=== PATIENT | female | born 1935 | race Caucasian/White ===

== ENCOUNTER 2017-10-31 15:12 | Emergency (ER) | payer OTHER ==
[~2017-10-31] VITALS: Ht 162.6 cm; Wt 68.0 kg
[2017-10-31] MEDS ORDERED: SYNTHROID50 MCG PO (15:43)
[2017-10-31] MEDS ORDERED: ARICEPT 5 MG TAB5 MG PO (15:44)
[2017-10-31] MEDS ORDERED: ASPIR 8181 MG PO (15:44)
[2017-10-31] MEDS ORDERED: ALPRAZOLAM 0.0.25 MG PO (15:44)
[2017-10-31] MEDS ORDERED: MOBIC7.5 MG PO (16:03)
[2017-10-31 17:12] VITALS: BP 168/86
== END 2017-10-31 17:14 | disposition home or self-care (01) ==
LOC: ER 15:12
DX: S16.1XXA Strain of muscle, fascia and tendon at neck level, initial encounter (principal); S40.012A Contusion of left shoulder, initial encounter; R07.81 Pleurodynia; Z88.0 Allergy status to penicillin; Z87.891 Personal history of nicotine dependence; V89.2XXA Person injured in unspecified motor-vehicle accident, traffic, initial encounter; Y93.89 Activity, other specified; Y92.89 Other specified places as the place of occurrence of the external cause; Y99.8 Other external cause status

== ENCOUNTER 2018-12-18 10:37 | Emergency (ER) | payer OTHER ==
[~2018-12-18] VITALS: Ht 144.8 cm; Wt 40.8 kg
[~2018-12-18 10:37] MED LIST: ALPRAZOLAM 0.0.25 MG PO; ARICEPT 5 MG TAB5 MG PO; ASPIR 8181 MG PO; MOBIC7.5 MG PO; SYNTHROID50 MCG PO
[2018-12-18] MEDS ORDERED: LIPITOR10 MG PO (10:56)
[2018-12-18 11:56] LABS: URINE BILIRUBIN NEGATIVE (Negative); URINE BLOOD NEGATIVE (Negative); URINE CLARITY CLEAR; URINE COLOR YELLOW; URINE GLUCOSE-RANDOM* NEGATIVE (Negative); URINE KETONES NEGATIVE (Negative); URINE LEUKOCYTES-REFLEX TRACE (Negative); URINE NITRITE-REFLEX NEGATIVE (Negative); URINE PROTEIN (DIPSTICK) NEGATIVE (Negative); URINE UROBILINOGEN 0.2 E.U./dl (0.2-1.0)
[2018-12-18 12:07] VITALS: BP 166/85
[2018-12-18] MEDS ORDERED: MIRALAX17 GM PO (12:09)
== END 2018-12-18 12:31 | disposition home or self-care (01) ==
LOC: ER 10:37
PROVIDERS: Emergency Medicine
DX: R10.31 Right lower quadrant pain (principal); Z87.891 Personal history of nicotine dependence; Z88.0 Allergy status to penicillin

== ENCOUNTER 2019-04-29 18:55 | Inpatient (IN) | payer OTHER ==
[~2019-04-29] VITALS: Ht 157.5 cm; Wt 43.1 kg
[~2019-04-29 18:55] MED LIST changes: +LIPITOR10 MG PO; +MIRALAX17 GM PO
[2019-04-29 19:06] VITALS: BP 118/94
[2019-04-29 19:15] LABS: ABSOLUTE NEUTROPHILS 9.5 thou/uL (1.4-8.2); BASOPHILS 0.3 % (0.0-2.0); EOSINOPHILS 0.2 % (0.0-3.0); HEMATOCRIT 39.4 % (37.0-47.0); HEMOGLOBIN 13.2 gm/dL (12.0-15.0); LYMPHOCYTES 6.8 % (24.0-44.0); MCH 33.1 pg (26.0-34.0); MCHC 33.6 g/dL (28.0-37.0); MCV 98.5 fL (80.0-100.0); MONOCYTES 7.2 % (1.0-8.0); PLATELET COUNT 151 thou/uL (150-400); POLYS 85.5 % (36.0-66.0); RDW 13.1 % (10.5-14.5); WBC 11.1 thou/uL (4.0-11.0)
[2019-04-29] MEDS ORDERED: ROBITUSSIN100 MG/53 PO (19:22)
[2019-04-29 19:23] LABS: ANION GAP 8 mmol/L (7-16); BUN 19 mg/dL (7-18); CALCIUM 8.8 mg/dL (8.5-10.1); CHLORIDE 106 mmol/L (98-107); CO2 27 mmol/L (21-32); CREATININE 0.9 mg/dL (0.6-1.0); GLUCOSE 108 mg/dL (74-106); SODIUM 141 mmol/L (136-145)
[2019-04-29] MEDS ORDERED: [UNRECOGNIZED DRUG - OTHER] INH (19:24)
[2019-04-29 19:33] LABS: ALBUMIN 2.9 g/dL (3.4-5.0); MAGNESIUM 1.7 mg/dL (1.8-2.4); SGOT 19 U/L (15-37); SGPT 21 U/L (30-65); TOTAL BILIRUBIN 1.1 mg/dL (<0.1-1.0); TOTAL PROTEIN 6.8 g/dL (6.4-8.2); TROPONIN-I <0.06 ng/mL (<0.06)
--- NOTE | 2019-04-29 21:24 | NUR ---
CALLED [facility] TO CHECK OPN CAPABILTY BETWEEN ZITHROMYCIN AND MAGNIESUM SULFATE AND WAS TOLD IT WAS COMPATABLE
[2019-04-29 21:41] LABS: APTT 25.4 Seconds (24.5-32.8); PROTIME 10.4 Seconds (9.3-11.4)
--- NOTE | 2019-04-29 22:46 | NUR ---
DISCONTIUED IV IN PT'S LEFT FOREARM DUE TO REDNESS IN THE VEIN FROM ZITHROMYCIN INFUSION
[2019-04-29] MEDS ORDERED: IPRAT-ALBUT 0.5-3 ML INH (23:35)
[2019-04-30] VITALS (9 sets, daily range): BP systolic 115–176; BP diastolic 74–105
--- NOTE | 2019-04-30 00:09 | NUR ---
PT IS A MOUTH NREATHER AND IS NOT GETTING ANY BENEFIT FROM A [facility], SO RESPIRATORY WAS CALLED AND PUT PT ON A VENTI-MASK AT 40% o2
--- NOTE | 2019-04-30 01:00 | NUR ---
MESSAGE LEFT FOR BASSAM TO CALL HERE
[2019-04-30] MEDS ORDERED: ROCEPHIN 11 GM/1001 IM (04:44)
[2019-04-30 05:07] LABS: HEMATOCRIT 37.4 % (37.0-47.0); HEMOGLOBIN 12.7 gm/dL (12.0-15.0); MCH 33.4 pg (26.0-34.0); MCHC 33.8 g/dL (28.0-37.0); MCV 98.9 fL (80.0-100.0); RBC 3.78 mil/uL (4.20-5.00); RDW 13.1 % (10.5-14.5); WBC 8.1 thou/uL (4.0-11.0)
[2019-04-30 05:19] LABS: CALCIUM 7.9 mg/dL (8.5-10.1); CREATININE 0.8 mg/dL (0.6-1.0); POTASSIUM 3.8 mmol/L (3.5-5.1)
--- NOTE | 2019-04-30 06:27 | NUR ---
PATIENT IS CONFUSED. PATIENT CAN BE AGGRESSIVE PER REPORT. PATIENT HAS BEEN SLEEPING THIS SHIFT. SHE IS AROUSABLE TO VERBALIZATION. PATIENT IS ON VENTIMASK 40% SATING IN THE 90S%. PATIENT DENIES PAIN. PATIENT IS ACHS ACCUCHECKS. PATIENT IS NSR ON TELE. PATIENT IS RESTING COMFORTABLY IN BED. WCM. PATIENT IS PROGRESSING TO GOALS. DPOA IS GERMÁNKATIE ROLLEJOSIAHLanny ([facility]) AND JOO BANEGAS [phone].
--- NOTE | 2019-04-30 14:10 | EKG ---
[address] [address] ELECTROCARDIOGRAM REPORT Name: LISALannySIERRA Room #: 364-P ADM IN M.R.#: [id number] Admission: 04/29/19 Attend Phys: Corby Hale MD Discharge: Date of : 35 Report #: [id number] THIS REPORT FOR: //name// [facility] ED Test Date: 2019-04-29 Test Time: 20:03:36 Pat Name: SIERRA PATEL Department: Room: 364 Gender: F Chief Dietitian: PAULINA : 1935 Requested By: Supa Rangel Order Number: [id number] MD: Judson Philip Measurements Intervals [place] Rate: 89 P: 56 AK: 143 QRS: -35 QRSD: 88 T: 67 QT: 366 QTc: 446 Interpretive Statements Sinus rhythm Left axis deviation Low voltage, extremity leads No previous ECG available for comparison Electronically Signed On 04-30-2019 14:10:14 CDT by Judson Philip [email or web address] <ELECTRONICALLY SIGNED> By: Judson Philip MD 04/30/19 1410 02 02 Judson Philip MD /NANCY
--- NOTE | 2019-04-30 15:10 | NUR ---
DP faxed AL referal to [facility], unsure of dc date at this time.
--- NOTE | 2019-04-30 15:42 | NUR ---
Pt very confused, behavior escalates from calm to agitated quicky. Pressure injury noted on upper right back. It was measured, documented, picture was taken and placed in chart, and wound was covered with bandage. Changed to puree diet after swallow study but refuses to eat much. Had a loose cough with course sounds auscultated in all 4 lobes, all of which cleared up as the day progressed. Was producing thick green sputum that required suctioning. pt did not complain of any pain.
--- NOTE | 2019-04-30 16:00 | NUR ---
I have reviewed the student's documentation.
--- NOTE | 2019-04-30 16:48 | NUR ---
INITIAL ASSESSMENT: REYNALDO reviewed chart and spoke with nursing and attending physician. Pt was admitted from [facility] [place] due to PE. Pt with hx of dementia. Per chart, pt is normally w/c bound at the facility. REYNALDO left voice message for ecg technician at [facility] to obtain info on pt. load planner faxed info to the facility for review. REYNALDO left voice message for listed contact, Can De Leon ([phone]). REYNALDO is following to assist as needed with discharge planning.
--- NOTE | 2019-04-30 17:01 | NUR ---
PT WITH BASELINE DEMENTIA ORIENTED TO SELF ONLY. ST EVALUATION RECOMEND PUREED DIET HOWEVER PT TEFUSING TO TAKE IN PO. PT FREQUENTLY TAKES OF VENTI MASK HOWEVER SATURATING ABOVE 90 PERCENT. STUDENT LIFE COORDINATOR PERFORM GOOD ORAL CARE TODAY AND Q 2 HOUR TURNS. WILL CONTINUE TO ASSESS.
--- NOTE | 2019-05-01 02:03 | NUR ---
PATIENT IS PROGRESSING SLOWLY IN HER CARE PLAN. VITAL SIGNS STABLE WITH PATIENT HAVING NO COMPLAINTS NOR NURSE PERCEIVED ANY PAIN OR NAUSEA ON BEHALF OF PATIENT. ALERT AND CONFUSED PATIENT IS UNABLE TO CALL APPROPRIATELY FOR NEEDS OR PARTICIPATE IN CARE PLAN. BREATHING STABLE ON NASAL CANNULA EVIDENCED BY ASSESSMENT AND CONTINUOUS SATURATION MONITOR. FREQUENTLY INCONTINENT, PATIENT HAS BEEN CHANGED FREQUENTLY WITH SKIN CARE PROVIDED. CONTINUE PLAN OF CARE.
[2019-05-01 04:12] VITALS: BP 148/94
[2019-05-01 07:54] VITALS: BP 151/97
[2019-05-01 11:21] VITALS: BP 122/80
--- NOTE | 2019-05-01 11:40 | NUR ---
WOUND CARE NOTE; ASSESSED GERM DRIER PERFORMING WOUND CARE THIS AM, BACK WOUND HEALING, PINK VIABLE TISSUE PRESENT HEALING, L KNEE WOUND REMAINS DRY, SCABBED OVER, LESS ECCHYMOSIS PRESENT, PT COOPERATIVE W/ CARE, WILL CONT TO FOLLOW RECOMMENDATIONS; CONT SAME WOUND CARE
--- NOTE | 2019-05-01 15:29 | NUR ---
SW reviewed chart and spoke with attending physician. PT/OT ordered today to evaluate pt. community development planner to fax updates to [facility] when available. Plan is for pt to return to [facility] when medically stable. REYNALDO is following to assist as needed with discharge planning.
[2019-05-01 16:52] VITALS: BP 147/92
[2019-05-01 19:27] VITALS: BP 142/101
[2019-05-02 04:00] VITALS: BP 159/93
[2019-05-02 08:14] VITALS: BP 168/109
[2019-05-02] MEDS ORDERED: ALPRAZOLAM 0.0.25 MG PO (10:32)
[2019-05-02] MEDS ORDERED: XARELTO15 MG PO (10:32)
[2019-05-02] MEDS ORDERED: ASPIR 8181 MG PO (10:32)
[2019-05-02] MEDS ORDERED: CEFUROXIME500 MG PO (10:32)
[2019-05-02] MEDS ORDERED: MIRALAX17 GM PO (10:32)
[2019-05-02] MEDS ORDERED: AZITHROMYCIN 2250 MG PO (10:32)
[2019-05-02] MEDS ORDERED: ACETAMINOPHEN325 M1 PO (10:32)
--- NOTE | 2019-05-02 11:29 | NUR ---
NURSE TALKED WITH FAMILY WHO EXPRESSED PATIENT HAD HER FLU VACCINE 2 WEEKS AGO AT [facility].
--- NOTE | 2019-05-02 12:56 | NUR ---
DISCHARGE NOTE: SW reviewed chart and spoke with nursing and attending physician. Pt is medically stable for discharge back to [facility] today. PT/OT to evaluate pt to see how pt can transport back to the facility. sr. merchandise planner contacted pt's family/friend, Can, who states they can transport pt if needed. Chart copy requested. sr. merchandise planner to coordinate with [facility]. No additional SW needs identified at this time, but is available to assist as needed with discharge planning.
--- NOTE | 2019-05-02 16:01 | NUR ---
DISCHARGE ORDERS COMPLETED PER ATTENDING. PATIENT [facility] TO [facility]. CHART COPY COMPLETED PER DINING SERVICE SUPERVISOR. DISCHARGE ORDERS FAXED TO [facility], CHARGE NURSE, VERIFIED ORDERS RECEIVED. [facility] TO TRANSPORT PATIENT [facility]. JOO BANEGAS, FRIEND, NOTIFIED. ISELA, UNIT STAFF, NOTIFIED AND CONTACT NUMBER FOR REPORT PROVIDED. UNIT SW AWARE.
--- NOTE | 2019-05-02 17:15 | NUR ---
NURSE ATTEMPTED TO CALL REPORT TO THE RECIEVING FACILITY. HOWEVER, WAS UNSUCCESSFUL WITH MULTIPLE ATTEMPTS. SHE WAS TRANSPORTED VIA STRETCHER WITH HER CLOTHES AND JEWELRY. SHE WAS CLEANED UP POST URINATION PRIOR TO LEAVING UNIT.
--- NOTE | 2019-05-02 19:35 | NUR ---
nurse was able to get through to staff at facility to give report. Report given to shift manager RN at facility.
--- NOTE | 2019-05-02 20:12 | NUR ---
NURSE LEFT SCRIPTS IN BOX OF CASE MANAGEMENT, TO GET TO PATIENT VIA [facility] TOMORROW.
== END 2019-05-02 17:09 | disposition home or self-care (01) | DRG 175 ==
LOC: ER 18:55 → 3W 22:32 → EROBS 22:32 → 3W 04-30 01:37
PROVIDERS: Emergency Medicine; Nurse Practitioner Family; ADMIT Internal Medicine
DX: I26.99 Other pulmonary embolism without acute cor pulmonale (principal); J18.9 Pneumonia, unspecified organism; J96.01 Acute respiratory failure with hypoxia; E46 Unspecified protein-calorie malnutrition; Z68.1 Body mass index [BMI] 19.9 or less, adult; E78.5 Hyperlipidemia, unspecified; E03.9 Hypothyroidism, unspecified; K44.9 Diaphragmatic hernia without obstruction or gangrene; F41.9 Anxiety disorder, unspecified; K21.9 Gastro-esophageal reflux disease without esophagitis; G30.9 Alzheimer's disease, unspecified; F02.80 Dementia in other diseases classified elsewhere, unspecified severity, without behavioral disturbance, psychotic disturbance, mood disturbance, and anxiety; Z79.82 Long term (current) use of aspirin; Z88.0 Allergy status to penicillin; Z88.8 Allergy status to other drugs, medicaments and biological substances; Z87.891 Personal history of nicotine dependence; Z79.899 Other long term (current) drug therapy
CPT/HCPCS: 10779; 10879

== ENCOUNTER 2019-05-11 01:23 | Inpatient (IN) | payer OTHER ==
[~2019-05-11] VITALS: Ht 167.6 cm; Wt 50.1 kg
[2019-05-11] VITALS (8 sets, daily range): BP systolic 103–150; BP diastolic 51–90
--- NOTE | ~2019-05-11 | EMS ---
[facility] [address] [place] [address] EMS Patient Care Report Name: SIERRA PATEL Room #: REG FADI Blanco#: [id number] Admission: 05/11/19 Attend Phys: Discharge: Date of : 35 Report #: [id number] THIS REPORT FOR: //name// Report Transmitted: 05/11/2019 01:24 EMS Care Summary [facility] MED-ACT Incident [id number] @ 05/11/2019 00:45 Incident Location [id number] [place] [address] Patient PRATIBHA PATEL Female, 83 Years 1935 Patient Address [address] [place] [address] Patient History Dementia,Hyperlipidemia, Patient Allergies No known allergies, Patient Medications Rivastigmine, Synthroid, Lipitor, Alprazolam, Chief Complaint "dark brown emesis for last few hours" Disposition Transported No Lights/[place] Dispatch Reason Breathing Problem Transported To [facility] Narrative [id number] was dispatched to the above address for a C1 Breathing Difficulty involving an 80 y/o female. EMS/LFD personnel arrived at the facility front door and escorted by staff to the patient's room. The patient was found laying [facility] [address] [place] [address] EMS Patient Care Report Name: SIERRA PATEL Room #: REG FADI Blanco#: [id number] Admission: 05/11/19 Attend Phys: Discharge: Date of : 35 Report #: [id number] on her bed awake with approximately 100-150 ml of coffee-ground colored emesis on the bed, her clothes, face, and mouth. EMS immediately suctioned the patient's mouth and airway. Staff reported to EMS that the patient has a history of "progressed Alzheimer's disease" and that the patient is normally not verbally responsive and that there was nothing abnormal about her current mental status. The patient was able to respond to painful stimuli but did not follow any verbal commands or simple statements. Staff reported that the patient was checked on around 10:00-10:30pm and was found to have a very small amount of the dark brown emesis around her mouth but was easily cleaned up and the patient's airway was not compromised. Staff went in again approximately 30 minutes prior to EMS arrival and found the patient in her current state with a large amount of dark brown emesis around her, on the bed, and in her airway. After the patient's airway was suctioned, basic vitals were assessed and she was sheet lifted onto the ambulance cot, secured, and moved to the ambulance for further evaluation, care, and transport. Prior to transport, the patient's airway was suctioned again. During transport, the patient's vitals were monitored, IV access was acquired, IV fluids started, and the patient was given comfort care. Patient care was transferred to [facility] staff in room 6. Initial Vitals @01:10P: 99,R: 18,BP: 89/63,Pain: 0/10,GCS: 13,SpO2: 95,Revised Trauma: 11,MN Suspected: false @00:57P: 102,R: 18,BP: 96/77,Pain: 0/10,GCS: 13,SpO2: 92,Revised Trauma: 12, Assessments @00:58MENTAL:Other,SKIN:HEENT:Head/Face: No Abnormalities,Eyes: No Abnormalities,LUNG SOUNDS:General: Vomiting,General: Nausea,ABDOMEN:General: Vomiting,General: Nausea,PELVIS//GI:Pelvis GUOther,EXTREMITIES:PULSE:NEURO:No Abnormalities, Impression Gastrointestinal hemorrhage Procedures @00:58ALS AssessmentResponse: UnchangedSucceeded@00:59Suction Response: UnchangedSucceeded@01:12Normal Saline (.9% NaCl) 100cc (20 ga) Site: Forearm-LeftResponse: UnchangedSucceeded Timeline 00:44,Call Received 00:44,Psap Call 00:45,[place] [address] EMS Patient Care Report Name: SIERRA PATLE Room #: REG FADI Blanco#: [id number] Admission: 05/11/19 Attend Phys: Discharge: Date of : 35 Report #: [id number] 00:47,En Route 00:53,On Scene 00:57,At Patient 00:57,BP: 96/77 M,PULSE: 102,RR: 18 R,SPO2: 92 Ox,ETCO2: ,BG: ,PAIN: 0,GCS: 13, 00:58,ALS Assessment,Response: UnchangedSucceeded, 00:59,Suction Response: UnchangedSucceeded, 01:10,BP: 89/63 M,PULSE: 99,RR: 18 R,SPO2: 95 Ox,ETCO2: ,BG: ,PAIN: 0,GCS: 13, 01:12,Normal Saline (.9% NaCl) 100cc 20 ga Site: Forearm-Left,Response: UnchangedSucceeded, 01:12,Depart Scene 01:21,At Destination 01:53,Call Closed Disclaimer v1.1 Copyright 2019 [employer] This EMS Care Summary contains data elements from the applicable legal record (which may be displayed differently). It is designed to provide pertinent information for the following purposes: continuity of care, clinical quality, and state data reporting. The complete legal record is available to ED staff and administrators of the receiving hospital in ES's Patient Tracker. All data is provided "as is."
[~2019-05-11 01:23] MED LIST changes: +ACETAMINOPHEN325 M1 PO; +AZITHROMYCIN 2250 MG PO; +CEFUROXIME500 MG PO; +IPRAT-ALBUT 0.5-3 ML INH; +ROBITUSSIN100 MG/53 PO; +ROCEPHIN 11 GM/1001 IM; +XARELTO15 MG PO; +[UNRECOGNIZED DRUG - OTHER] INH
--- NOTE | 2019-05-11 01:49 | NUR ---
CALL PLACED TO PRIMARY CONTACT JOO BANEGAS, TO CONFIRM DNR STATUS AND UPDATE HIM, MESSAGE LEFT. SPOUSE IS [facility] AND WILL NOT HERE PHONE AT NIGHT
--- NOTE | 2019-05-11 02:08 | NUR ---
CONTACTED [facility], DONNA NURSE, CLARIFIED MEDICATIONS, LIST SENT VIA EMS, DOES NOT HAVE XARELTO ON IT, AZITHROMYCIN ON IT, SHE WILL SEND A NEW LIST
[2019-05-11 02:18] LABS: ABSOLUTE NEUTROPHILS 12.1 thou/uL (1.4-8.2); BASOPHILS 0.7 % (0.0-2.0); HEMATOCRIT 24.5 % (37.0-47.0); HEMOGLOBIN 7.9 gm/dL (12.0-15.0); LYMPHOCYTES 6.4 % (24.0-44.0); MCH 32.9 pg (26.0-34.0); MCHC 32.4 g/dL (28.0-37.0); MCV 101.5 fL (80.0-100.0); MONOCYTES 4.3 % (1.0-8.0); PLATELET COUNT 364 thou/uL (150-400); POLYS 88.6 % (36.0-66.0); RBC 2.42 mil/uL (4.20-5.00); RDW 12.7 % (10.5-14.5); WBC 13.6 thou/uL (4.0-11.0)
[2019-05-11 02:26] LABS: URINE BILIRUBIN NEGATIVE (Negative); URINE BLOOD NEGATIVE (Negative); URINE CLARITY CLEAR; URINE COLOR YELLOW; URINE GLUCOSE-RANDOM* NEGATIVE (Negative); URINE KETONES NEGATIVE (Negative); URINE LEUKOCYTES NEGATIVE (Negative); URINE NITRITE NEGATIVE (Negative); URINE PROTEIN (DIPSTICK) NEGATIVE (Negative); URINE UROBILINOGEN 0.2 E.U./dl (0.2-1.0)
[2019-05-11] MEDS ORDERED: ROCEPHIN 11 GM/1001 IM (02:30)
[2019-05-11 02:40] LABS: CALCIUM 6.6 mg/dL (8.5-10.1); CREATININE 0.9 mg/dL (0.6-1.0); POTASSIUM 3.5 mmol/L (3.5-5.1)
[2019-05-11 02:45] LABS: APTT 25.2 Seconds (24.5-32.8); INR 1.3; PROTIME 13.4 Seconds (9.3-11.4)
[2019-05-11 02:46] LABS: ALBUMIN 1.7 g/dL (3.4-5.0); TOTAL BILIRUBIN 0.3 mg/dL (<0.1-1.0); TOTAL PROTEIN 4.5 g/dL (6.4-8.2)
[2019-05-11 07:57] LABS: HEMOGLOBIN 8.6 gm/dL (12.0-15.0)
--- NOTE | 2019-05-11 16:14 | NUR ---
UNINTELLIGIBLE SPEECH. NG TO LIS DRAINING COFFEE GROUND/DARK RED DRAINAGE; IRRIGATED FOR PATENCY. MOREL TO DD. SOFT BILATERAL WRIST RESTRAINTS D/T ADVANCED DEMENTIA/PULLING AT TUBES/DRAINS. AND FRIEND ARRIVE THIS AFTERNOON. SHE IS IN MEMORY CARE AT [facility]. GI AND SURGERY CONSULTS HAVE SEEN. GOAL IS TO UNTWIST VOLVULUS WITH NG SUCTION. REPEAT CT TOMORROW. FALL PRECAUTIONS IN PLACE. FREQUENT CHECKS; WILL CONTINUE TO MONITOR.
--- NOTE | 2019-05-12 04:48 | NUR ---
RECEIVED PT'S CARE AROUND 2229; PT ON BED; TURN HEAD BACK AFTER CALLING NAME; ALERT; MURMURING INCOMPRENSIBLE WORDS; ON CONTINUOS MEDIUM SUCTION; CHANGE TO LOW INTERMITTEN; SINUS RYTHM ON THE MONITOR; R. FORE ARM BRUISING AROUND RESTRAINS & ID; ID & ARM BANDS TIED WITHOUT ONE FINGER SPACE IN BETWEEN; ARM BANDS CUT & RESTRAIN LOOSED; NEW ARM BANDS APPLIED WITH ONE FINGER SPACE IN BETWEEN; L. FA IV LEAKING; PT'S GOWN WET; IV DRESSING CHANGED; GOWN CHANGED; PT. REPOSITIONED ON BED; TURN ON HER L. SIDE; C/O PAIN OVER R. SIDE WHEN RE-POSITION; REMAINED MOST OF THE NIGHT AWAKE; MONITORING; ASSESSMENT CHARGED; FOLLOWING POC; WILL PASS ON REPORT;
[2019-05-12 04:54] LABS: CALCIUM 7.8 mg/dL (8.5-10.1); CREATININE 0.8 mg/dL (0.6-1.0); POTASSIUM 3.4 mmol/L (3.5-5.1)
[2019-05-12 05:07] VITALS: BP 96/71
[2019-05-12 05:43] LABS: HEMOGLOBIN 6.9 gm/dL (12.0-15.0)
[2019-05-12 05:44] LABS: MCH 34.6 pg (26.0-34.0); MCHC 34.9 g/dL (28.0-37.0); MCV 99.1 fL (80.0-100.0); RDW 13.2 % (10.5-14.5); WBC 10.6 thou/uL (4.0-11.0)
[2019-05-12 05:55] LABS: HEMATOCRIT 19.8 % (37.0-47.0)
[2019-05-12 08:31] VITALS: BP 138/65
[2019-05-12 12:08] VITALS: BP 127/79; BP 143/75
[2019-05-12 13:57] VITALS: BP 136/85
[2019-05-12 15:58] VITALS: BP 130/79
--- NOTE | 2019-05-12 17:56 | NUR ---
ASSUMED CARE OF PT AT SHIFT CHANGE. ASSESSMENTS CHARTED. MEDS GIVEN PER MAR. VSS. PT CONFUSED AND RESPONDS MOSTLY IN [facility]. BLOOD TRANSFUSION COMPLETE D/T CRITIAL LOW HGB OF 6.9. PT TOLERATED WELL WITH NO ADVERSE EFFECTS. PT IN SOFT RESTRAINTS D/T BITING AND PULLING OF TUBES. NG TUBE AT LOW INT SETTING. MOREL IN PLACE. EGD SCHEDULED FOR TOMORROW. NEED CONSENT. WILL CONTINUE TO MONITOR AND FOLLOW POC.
[2019-05-12 19:31] LABS: HEMATOCRIT 24.5 % (37.0-47.0); HEMOGLOBIN 8.4 gm/dL (12.0-15.0)
[2019-05-12 19:40] VITALS: BP 151/62
[2019-05-13 00:15] VITALS: BP 132/86
--- NOTE | 2019-05-13 03:12 | NUR ---
ASSESSMENT CHARTED. VSS. HGB STABLE. AWAITING AM LABS. PT ALERT, CONFUSED, AGITATED AT TIMES. Q2 RESTRAINTS. Q2 TURNS. NG IN PLACE LIS. X1 LOOSE BM BLACK/DARK BROWN. MOREL IN PLACE. CHLOR WIPES BATH GIVEN, BED SHEETS CHANGED. MOUTH CARE Q2. TALKED WITH ON PHONE PLANS TO COME BY IN AM. PLAN FOR EGD AM. WILL CONTINUE TO MONITOR AND WITH POC.
[2019-05-13 04:03] VITALS: BP 146/70
[2019-05-13 05:03] LABS: HEMATOCRIT 24.3 % (37.0-47.0); HEMOGLOBIN 8.3 gm/dL (12.0-15.0); MCH 32.9 pg (26.0-34.0); MCHC 34.2 g/dL (28.0-37.0); MCV 96.4 fL (80.0-100.0); RBC 2.52 mil/uL (4.20-5.00); RDW 16.4 % (10.5-14.5); WBC 9.3 thou/uL (4.0-11.0)
[2019-05-13 05:22] LABS: CALCIUM 7.9 mg/dL (8.5-10.1); CREATININE 0.7 mg/dL (0.6-1.0); POTASSIUM 3.6 mmol/L (3.5-5.1)
[2019-05-13 08:00] VITALS: BP 137/60
[2019-05-13 16:56] VITALS: BP 136/76
--- NOTE | 2019-05-13 18:27 | NUR ---
ASSUMED CARE OF PT AT SHIFT CHANGE. ASSESSMENT CHARTED. MEDS GIVEN PER MAR. VSS. PT NOT ORIENTED, IS CONFUSED AND RESPONDS MOSTLY IN GIBBERISH. PT HAD EGD TODAY SHOWING SEVERE GASTRITIS WITH NO ACTIVE BLEEDING. AN UPPER GI IS SCHEDULED FOR TOMORROW. PT REMAINS IN SOFT RESTRAINTS D/T PULLING OF TUBES. MOUTH CARE GIVEN. WILL CONTINUE TO MONITOR AND FOLLOW POC.
[2019-05-13 19:46] VITALS: BP 136/89
[2019-05-14 04:40] VITALS: BP 113/85
[2019-05-14 06:01] LABS: HEMATOCRIT 25.8 % (37.0-47.0); HEMOGLOBIN 8.7 gm/dL (12.0-15.0); MCH 32.2 pg (26.0-34.0); MCHC 33.6 g/dL (28.0-37.0); MCV 95.9 fL (80.0-100.0); RBC 2.69 mil/uL (4.20-5.00); RDW 15.8 % (10.5-14.5); WBC 10.5 thou/uL (4.0-11.0)
--- NOTE | 2019-05-14 06:07 | NUR ---
PATIENTS CARES WERE ASSUMED AT SHIFT CHANGE. PATIENTS WAS ASSESSED AND MEDS WERE PASSED. HOURLY ROUNDS WERE DONE. RENEW OF SOFT WRIT RESTRAINTS WAS OBTAINED AT 0500 FROM AKUA CARREON, PATIENT IS SET FOR DISCHAGE. RESTAINTS NEED TO BE OFF X24 HOURS. NG MUST BE D/C'D TO REMOVE THE SOFT RESTRAINTS. THE BED IS IN A LOW AND LOCKED POSITION. BED ALARM IS ON.
[2019-05-14 06:12] LABS: CALCIUM 8.1 mg/dL (8.5-10.1); CREATININE 0.6 mg/dL (0.6-1.0); POTASSIUM 3.7 mmol/L (3.5-5.1)
[2019-05-14 08:39] VITALS: BP 126/72
[2019-05-14 12:27] VITALS: BP 125/79
--- NOTE | 2019-05-14 12:41 | P ---
[facility] [place] [address] PROCEDURE REPORT Name: SIERRA PATLE Room #: 216-P [facility] IN M.R.#: [id number] Admission: 05/11/19 Attend Phys: Trish Mcfadden Discharge: Date of : 35 Report #: [id number] THIS REPORT FOR: //name// CC: [employer] [place] DATE OF SERVICE: 05/13/2019 PROCEDURE PERFORMED: Upper endoscopy. HISTORY OF PRESENT ILLNESS: The patient is an 83-year-old female with a history of advanced dementia, unable to give history, presented with hematemesis from a nursing facility. CT scan of the abdomen and pelvis showed a possible large hiatal hernia versus gastric volvulus. An NG tube was placed and coffee-ground aspirate was noted. The patient was on Pradaxa on admission, hemoglobin was 8.3 today. She was 6.9 when she was admitted. She has had 1 unit of packed cells. She is on PPI therapy. Surgery is following as well. Plan is for upper endoscopy. DESCRIPTION OF PROCEDURE: The risks and benefits of the procedure were explained to the patient's , those risks including but not limited to bleeding, perforation, the risk of sedation. She understood these risks and gave informed consent. Sedation was given using propofol per anesthesia. Next, using a standard Olympus upper endoscope, the scope was placed in the patient's mouth and advanced under direct vision through the esophagus and into the stomach. I left a nasogastric tube in place. The upper esophagus was normal; however, in the mid and distal esophagus, severe esophagitis with multiple ulcerations were noted. No active bleeding. Upon entering the stomach, there was some old blood with a small amount of bright red blood. The NG was coiled up within the hiatal hernia; therefore, I pulled the NG tip back. It was difficult, but I was able to eventually pass through what was either a large hiatal hernia or a volvulus, it did take some effort to advance the scope through this area. I was able to advance into the antrum, which was normal. The pylorus was patent. I was able to advance the scope into the duodenal bulb and first portion, both of which were normal. The scope was then brought back up into the patient's stomach. There was a mild gastritis. Also noted was a single ulceration with clot. This appeared stable. I did not proceed with cautery or attempt to clip as there is no active bleeding at this time and the patient again has been on Pradaxa recently. The tip of the tube now is below the hiatal hernia at this point. At this point, the scope was then withdrawn and the procedure terminated. The patient tolerated the procedure well. IMPRESSION: 1. Severe erosive esophagitis, possible recent source of coffee-ground emesis. [address] [address] PROCEDURE REPORT Name: SIERRA PATEL Room #: 216-P [facility] IN M.R.#: [id number] Admission: 05/11/19 Attend Phys: Trish Mcfadden Discharge: Date of : 35 Report #: [id number] No active bleeding at this time. 2. Gastritis with a single ulceration and clot. This may be secondary to trauma to nasogastric tube, but appears older, no active bleeding as described above, also could be source of coffee-ground emesis obviously. 3. Large hiatal hernia, difficult to tell if this is also causing a volvulus. It was difficult to pass the scope through this area, but it was successful. We will discuss findings with surgeon. Nasogastric tube was left in place. Thank you for allowing me to participate in her care. <ELECTRONICALLY SIGNED> By: Chuy Carbone MD 05/14/19 1241 1441 0013 Chuy Carbone MD /nt
[2019-05-14 16:00] VITALS: BP 133/99
--- NOTE | 2019-05-14 16:08 | NUR ---
patient admits from [facility]. SHe has hx of dementia and moved to facility end of Mar 2019. She prior lived with spouse and ambulatory. Sp with [facility] patient is wc bound and assitance to transfer to/from . She uses no oxygen at facility. Spouse very [employer] sp with Can De Leon and reviewed role of casemgt. Casemgt following for dc planning.
--- NOTE | 2019-05-14 17:01 | NUR ---
FAXED CLINICAL UPDATE TO [facility] RECEIVED CONFIRMATION. DP TO FOLLOW.
--- NOTE | 2019-05-14 18:01 | NUR ---
ASSUMMED PT CARE AT APPROXMATELY 0700. PT AWAKE AND CONFUSED. HX OF ALZHEIMERS. FREQUENT REORIENTATION. FALL PRECAUTIONS IN PLACE. ASSESSMENT CHARTED. PT IN NO APPARENT PAIN. PT IN SOFT RESTRAINTS DUE TO PT TRYING TO GRAB AT NG TUBE AND IV. RESTRAINT CHECKS CHARTED/ASSESSED. Q2 TURNS. VITAL SIGNS STABLE. EDUCATED PT'S SPOUSE ON POC. PT'S SPOUSE STATED UNDERSTANDING AND DENIED HAVING FURTHER QUESTIONS. PT COMFORTABLE IN BED. PT MAKING MORE COMPREHENSIBLE WORDS BY END OF SHIFT.
[2019-05-14 19:45] VITALS: BP 135/82
[2019-05-14 20:48] VITALS: BP 133/78
--- NOTE | 2019-05-15 04:00 | NUR ---
ASSESSMENT CHARTED. VSS. PT CONFUSED. NG IN PLACE LIS. 2 L N/C. Q2 TURNS. Q2 MOUTH SWAB AND MOISTURIZER. MOREL IN PLACE. NO STOOLS TONIGHT. FLUIDS RUNNNING PER EMAR. AWAITING AM LABS. WILL CONTINUE TO MONITOR AND WITH POC.
[2019-05-15 04:55] VITALS: BP 161/91
[2019-05-15 05:19] LABS: HEMATOCRIT 25.7 % (37.0-47.0); HEMOGLOBIN 8.6 gm/dL (12.0-15.0); MCH 31.8 pg (26.0-34.0); MCHC 33.4 g/dL (28.0-37.0); MCV 95.1 fL (80.0-100.0); RBC 2.71 mil/uL (4.20-5.00); RDW 15.3 % (10.5-14.5); WBC 9.7 thou/uL (4.0-11.0)
[2019-05-15 05:27] LABS: CALCIUM 7.4 mg/dL (8.5-10.1); CREATININE 0.6 mg/dL (0.6-1.0)
[2019-05-15 05:53] LABS: POTASSIUM 2.9 mmol/L (3.5-5.1)
[2019-05-15 07:18] VITALS: BP 114/68
[2019-05-15 11:28] VITALS: BP 158/127
[2019-05-15 11:34] VITALS: BP 147/97
--- NOTE | 2019-05-15 15:39 | NUR ---
spoke with RN who reports Dr Myers sp with patients patient care representative regarding hospice care. Sp with Mr De Leon who reports he sp with Dr Myers. They are interested in [facility] eval for hospice care. Ekaterina with Hospice to eval in am at 8 am. Mr Blair and patients spouse to meet Dr Myers tomorrow at 9 am casemgt to assist and will f/u with family in am. referral faxed to [facility] eval.
[2019-05-15 16:45] VITALS: BP 110/70
--- NOTE | 2019-05-15 16:55 | NUR ---
FAXED REFERRAL TO HOSPICE HOUSE SPOKE WITH CAROLE IN ADM SHE RECEIVED REFERRAL AND REVIEWING. DP TO FOLLOW.
--- NOTE | 2019-05-15 16:55 | NUR ---
ASSUMMED PT CARE AT APPROXIMATELY 0700. PT AWAKE AND NOT ORIENTED. HX OF ALZHIEMERS. FREQUENT REORIENTATION. PT IN NO APPARENT PAIN. PT'S NG TUBE CLAMPED. PT DID NOT PASS SWALLOW STUDY- STAYING NPO. SOCIAL WORK CONSULT FOR HOSPICE CARE. HOSPICE CARE MEETING C FAMILY AND NEXT AM. PT'S FAMILY AND TUMOR REGISTRAR EDUCATED ABOUT POC. PT AND PT'S FAMILY STATED UNDERSTANDING AND DENIED HAVING FURTHER QUESTIONS. PT HAD X3 LOOSE BLACK TARRY STOOLS. NOTIFIED. STATED TO CONTINUE TO MONITOR. Q2 TURNS. PT IN SOFT RESTRAINTS-Q2 DOCUMENTATION CHARTED. HIGH BP NOTED AT NOON. NOTIFIED AND STATED TO CONTINUE TO WATCH. PT'S BP LOWERED AND IS STABLE. VITAL SIGNS STABLE. BLOOD SUGARS STABLE. PT COMFORTABLE IN BED.
[2019-05-15 19:45] VITALS: BP 145/67
[2019-05-16 04:17] VITALS: BP 101/74
[2019-05-16 05:34] LABS: HEMATOCRIT 24.9 % (37.0-47.0); HEMOGLOBIN 8.5 gm/dL (12.0-15.0); MCH 32.5 pg (26.0-34.0); MCHC 34.1 g/dL (28.0-37.0); MCV 95.1 fL (80.0-100.0); RBC 2.62 mil/uL (4.20-5.00); RDW 15.2 % (10.5-14.5); WBC 8.6 thou/uL (4.0-11.0)
[2019-05-16 06:04] LABS: CALCIUM 7.6 mg/dL (8.5-10.1); CREATININE 0.7 mg/dL (0.6-1.0)
[2019-05-16 07:53] VITALS: BP 140/83
--- NOTE | 2019-05-16 12:04 | NUR ---
met with friend MR Blair and spouse this am. hospice evaled this am and patient appropriate for hospice house and bed avail. Ekaterina with Hospice also met with spouse. Spouse feels all questions ansered and agreeable to transfer to hospice house. [facility] for 1115. Notified house and Mr Blair of dc timeframe. Chart copied. OUTSIDE dnr completed and on chart.
--- NOTE | 2019-05-16 20:23 | NUR ---
ASSUMED CARE AT 0700, SHIFT ASSESSMENT DONE, MEDS GIVEN, VSS. DENIES PAIN, NAUSES, VOMITING.NG TUBE WAS DISCONTINUED. ORDER RECEIVED TO DISCHARGE PT TO [facility]. PIPE WAS LEFT IN, REPORT CALLED, PT LEFT AT 1130.
== END 2019-05-16 11:32 | disposition hospice, inpatient (51) | DRG 380 ==
LOC: ER 01:23 → 2N 04:48 → EROBS 04:48 → 2N 06:15
PROVIDERS: Emergency Medicine; Hospitalist; Nurse Practitioner Family; ADMIT Hospitalist
PROC: 0D9670Z Drainage of Stomach with Drainage Device, Via Natural or Artificial Opening (ICD-10-PCS; principal; 2019-05-11)
PROC: 30233N1 Transfusion of Nonautologous Red Blood Cells into Peripheral Vein, Percutaneous Approach (ICD-10-PCS; 2019-05-12)
PROC: 0DJ08ZZ Inspection of Upper Intestinal Tract, Via Natural or Artificial Opening Endoscopic (ICD-10-PCS; 2019-05-13)
DX: K22.11 Ulcer of esophagus with bleeding (principal); J69.0 Pneumonitis due to inhalation of food and vomit; D62 Acute posthemorrhagic anemia; E46 Unspecified protein-calorie malnutrition; Z68.1 Body mass index [BMI] 19.9 or less, adult; K25.4 Chronic or unspecified gastric ulcer with hemorrhage; K92.0 Hematemesis; G30.9 Alzheimer's disease, unspecified; F02.80 Dementia in other diseases classified elsewhere, unspecified severity, without behavioral disturbance, psychotic disturbance, mood disturbance, and anxiety; E78.5 Hyperlipidemia, unspecified; F41.9 Anxiety disorder, unspecified; E83.42 Hypomagnesemia; R13.10 Dysphagia, unspecified; K21.9 Gastro-esophageal reflux disease without esophagitis; K31.89 Other diseases of stomach and duodenum; K44.9 Diaphragmatic hernia without obstruction or gangrene; E03.9 Hypothyroidism, unspecified; J44.9 Chronic obstructive pulmonary disease, unspecified; Z86.711 Personal history of pulmonary embolism; Z88.0 Allergy status to penicillin; Z88.8 Allergy status to other drugs, medicaments and biological substances; Z87.891 Personal history of nicotine dependence
CPT/HCPCS: 10081; 62110; 62900; 70005